=== PATIENT | female | born 1935 | race Caucasian/White ===

== ENCOUNTER 2022-08-02 15:58 | Inpatient (IN) | payer MEDICARE, OTHER ==
[~2022-08-02] VITALS: Ht 160 cm; Wt 49.0 kg
--- NOTE | 2022-08-02 16:18 | NUR ---
DR TAYLOR AT BEDSIDE
[2022-08-02] MEDS ORDERED: ACETAMINOPHEN ES 500 MG TABLET PO ONE (16:30)
[2022-08-02] MEDS ORDERED: IV NS 0.9% 500 ML BAG IV ONE (16:30)
[2022-08-02 16:48] LABS: BASOPHILS % (AUTO) 0.5 % (0.0-2.0); EOSINOPHILS % (AUTO) 0.1 % (0.0-6.0); HEMATOCRIT 37 % (33-45); HEMOGLOBIN 12.1 g/dL (11.5-14.8); LYMPHOCYTES # (AUTO) 0.6 K/uL (0.8-4.8); LYMPHOCYTES % (AUTO) 6.4 % (20.0-44.0); MEAN CORPUSCULAR HGB CONC 33 g/dl (31.0-36.0); MEAN CORPUSCULAR VOLUME 93 fL (82-100); MONOCYTES # (AUTO) 0.9 K/uL (0.1-1.30); MONOCYTES % (AUTO) 10.1 % (2.0-12.0); NEUTROPHILS # (AUTO) 7.5 K/uL (1.8-8.9); NEUTROPHILS % (AUTO) 82.9 % (43.0-81.0); PLATELET COUNT (AUTO) 304 K/uL (150-450); RED BLOOD CELL COUNT(AUTO) 3.96 MIL/uL (4.0-5.2); WHITE BLOOD COUNT (AUTO) 9.1 K/uL (4.3-11.0)
[2022-08-02 17:00] LABS: CALCIUM, SERUM 7.8 mg/dL (8.5-10.1); CREATININE 0.7 mg/dL (0.6-1.3); POTASSIUM 4.1 mmol/L (3.5-5.1)
[2022-08-02 17:05] LABS: ALBUMIN 3.7 g/dL (3.4-5.0); BILIRUBIN,DIRECT 0.1 mg/dL (0.0-0.2); BILIRUBIN,TOTAL 0.3 mg/dL (0.2-1.0); TOTAL PROTEIN, SERUM 7.3 g/dL (6.4-8.2)
--- NOTE | 2022-08-02 17:06 | NUR ---
rapid covid swab done and sent to lab
[2022-08-02] MEDS ORDERED: ACETAMINOPHEN 325 MG TABLET ONE (17:07)
[2022-08-02] MEDS ORDERED: ACETAMINOPHEN ES 500 MG TABLET ONE (17:14)
--- NOTE | 2022-08-02 18:00 | NUR ---
urine sample collected and sent to lab
--- NOTE | 2022-08-02 18:01 | NUR ---
MOVE SHEET SUBMITTED
--- NOTE | 2022-08-02 18:02 | NUR ---
GOT BED 306
--- NOTE | 2022-08-02 18:04 | NUR ---
2ND COVID SWAB DONE AND SENT TO LAB
[2022-08-02] MEDS ORDERED: ASPI-1169 PO (18:07)
[2022-08-02] MEDS ORDERED: SENN-148 PO (18:07)
[2022-08-02 18:22] LABS: BILIRUBIN,URINE NEGATIVE (NEGATIVE); COLOR,URINE YELLOW (YELLOW); LEUKOCYTE ESTERASE ,URINE NEGATIVE (NEGATIVE); NITRITE, URINE NEGATIVE (NEGATIVE); PROTEIN,URINE NEGATIVE (NEGATIVE); UGLUCOSE 1+ mg/dL (NEGATIVE); UROBILINOGEN,URINE 0.2 EU/dL (0.2)
[2022-08-02 18:39] LABS: BACTERIA,URINE None seen /HPF (None Seen); SQUAMOUS EPITHELIAL CELL,UR 0-2 /HPF (None Seen); WBC,URINE 0-2 /HPF (0-3)
--- NOTE | 2022-08-02 18:49 | NUR ---
AJIL POSITIVE RESULT RELAYED BY LEATHER STITCHER. MADE AWARE
--- NOTE | 2022-08-02 19:12 | NUR ---
AWAITING FOR NEW BED ASSIGNMENT FROM HYDRAULICS TEACHER.
--- NOTE | 2022-08-02 19:40 | NUR ---
RECEIVED PT AAOX4. ABLE TO MAKE NEEDS KNOWN. PATIENT CAME INITIALLY WITH CC OF HEADACHE. ADMITTED FOR COVID. RECEIVED WITH IV LINE ON RIGHT FA G20. POSITIONED COMFORTABLY IN BED. VITALS CHECKED
--- NOTE | 2022-08-02 19:49 | NUR ---
SEEN BY JAIMEE ALTAMIRANO AT BEDSIDE
[2022-08-02] MEDS ORDERED: MAG HYDROX/AL HYDROX/SIMETH 30 ML UDC PO PRN (20:30)
[2022-08-02] MEDS ORDERED: ACETAMINOPHEN 325 MG TABLET PO PRN (20:30)
[2022-08-02] MEDS ORDERED: ONDANSETRON HCL/PF 4 MG/2 ML VIAL IVP PRN (20:30)
[2022-08-02] MEDS ORDERED: MAGNESIUM HYDROXIDE 30 ML UDC PO PRN (20:30)
[2022-08-02] MEDS ORDERED: Z GUARD REMEDY 4 OZ OINT TP PRN (20:30)
[2022-08-02] MEDS ORDERED: TEMAZEPAM 15 MG CAPSULE PO PRN (20:30)
--- NOTE | 2022-08-02 21:08 | NUR ---
REPORT GIVEN TO EARNEST CHAU
--- NOTE | 2022-08-02 21:25 | NUR ---
TRANSFERRED PATIENT TO ROOM
--- NOTE | 2022-08-02 21:45 | NUR ---
RN NOTE RECEIVED PT IN BED FROM ER VIA [facility], CAME HERE FOR THE DX OF COVID-19 AND HYPONATREMIA. PT AWAKE, A/O X 4, ABLE TO MAKE NEEDS KNOWN. CURRENTLY ON RA TOLERATING WELL WITH O2 SAT @ 100%. VS STABLE. NO S/SX OF ACUTE RESPI DISTRESS NOTED AT THIS TIME. NO SOB. PT COMPLAINS PAIN ON HER RIGHT EAR. IV ACCESS NOTED ON RFA #20g, PATENT, INTACT AND FLUSHES WELL. NO OPEN WOUNDS UPON ASSESSMENT EXCEPT FOR LARGE BRUISING ON BILATERAL ARMS, AND MINOR BRUISING ON HER STOMACH. ALL SAFETY MEASURES IN PLACE: BED LOCKED IN LOW POSITION, BED ALARM ON, CALL LIGHT WITHIN REACH, SR UP X 2. WILL CONTINUE TO MONITOR PT.
[2022-08-02] MEDS: ATORVASTATIN 10 MG TABLET PO SCH (21:58)
[2022-08-02] MEDS: MORPHINE SULFATE INJ 2 MG/ML DISP.SYRIN IV PRN (21:58)
--- NOTE | 2022-08-02 22:05 | NUR ---
RN NOTE PT COMPLAINS OF SEVERE PAIN ON HER R EAR. NO RESPI DISTRESS NOTED. MORPHINE IV GIVEN ORDERED. WILL CONTINUE TO MONITOR PT.
[2022-08-02] MEDS: IV NS 0.9% 1,000 ML IV PRN (22:14)
[2022-08-03] MEDS: HYDROCODONE/APAP 5/325MG TABLET PO PRN (01:16)
--- NOTE | 2022-08-03 01:25 | NUR ---
RN NOTE PT STILL COMPLAINS OF PAIN ON HER R EAR PLUS A HEADACHE. ASKS FOR ANOTHER PAIN MED. NORCO PO GIVEN ORDERED. WILL CONTINUE TO MONITOR PT.
[2022-08-03 04:00] VITALS: BP 130/74
[2022-08-03] MEDS: ENOXAPARIN SODIUM 40 MG/0.4 ML DISP.SYRIN SQ SCH (06:07)
--- NOTE | 2022-08-03 06:08 | NUR ---
RN NOTE PT STATES FEELING BETTER COMPARED TO LAST NIGHT'S PAIN IN HER R EAR. ALL DUE MEDS GIVEN. NEEDS ATTENDED TO. TURNED AND REPOSITIONED. WILL ENDORSE TO AM SHIFT NURSE FOR NATALY.
[2022-08-03 06:57] LABS: BASOPHILS % (AUTO) 0.4 % (0.0-2.0); HEMATOCRIT 33 % (33-45); HEMOGLOBIN 11.1 g/dL (11.5-14.8); LYMPHOCYTES % (AUTO) 15.5 % (20.0-44.0); MEAN CORPUSCULAR HGB CONC 34 g/dl (31.0-36.0); MEAN CORPUSCULAR VOLUME 92 fL (82-100); MONOCYTES # (AUTO) 0.8 K/uL (0.1-1.30); MONOCYTES % (AUTO) 12.9 % (2.0-12.0); NEUTROPHILS # (AUTO) 4.5 K/uL (1.8-8.9); NEUTROPHILS % (AUTO) 70.2 % (43.0-81.0); PLATELET COUNT (AUTO) 273 K/uL (150-450); RED BLOOD CELL COUNT(AUTO) 3.52 MIL/uL (4.0-5.2); WHITE BLOOD COUNT (AUTO) 6.4 K/uL (4.3-11.0)
[2022-08-03 07:07] LABS: CALCIUM, SERUM 7.9 mg/dL (8.5-10.1); CREATININE 0.6 mg/dL (0.6-1.3); MAGNESIUM 2.3 mg/dL (1.8-2.4); PHOSPHORUS 3.9 mg/dL (2.5-4.9); POTASSIUM 4.1 mmol/L (3.5-5.1)
[2022-08-03 07:13] LABS: THYROID STIMULATING HORMONE 3.244 uIU/mL (0.358-3.74)
[2022-08-03] MEDS ORDERED: MULT-447 PO (07:18)
--- NOTE | 2022-08-03 07:53 | NUR ---
RN OPENING NOTES: RECEIVED PT AWAKE, IN BED, A/O X3-4, ABLE TO VERBALIZE NEEDS. ON RA, SATURATING WELL @ 99%. NO S/S OF SOB OR ACUTE DISTRESS NOTED. C/O HEADACHE AND GENERAL PAIN 03/25, WILL MEDICATE ORDERED. IV ACCESS AT R FA #20 RUNNING NS AT 75ML/HR. SAFETY MEASURES IN PLACE, CALL LIGHT, TABLE WITHIN REACH, WILL CONT WITH PLAN OF CARE DURING SHIFT.
[2022-08-03] MEDS: PANTOPRAZOLE 40 MG TABLET.DR PO SCH (08:16)
[2022-08-03] MEDS: MORPHINE SULFATE INJ 2 MG/ML DISP.SYRIN IV PRN (08:17)
[2022-08-03] MEDS ORDERED: ASPIRIN EC 81 MG TABLET.DR PO SCH (09:00)
[2022-08-03] MEDS: MULTIVIT W/MINERALS 1 TAB TABLET PO SCH (09:36)
[2022-08-03] MEDS: IV NS 0.9% 1,000 ML IV PRN (09:46)
[2022-08-03 12:00] VITALS: BP 145/74
--- NOTE | 2022-08-03 16:45 | NUR ---
PT LEFT UNIT FOR MRI VIA [facility]
--- NOTE | 2022-08-03 17:30 | NUR ---
PT CAME BACK TO UNIT FROM MRI
--- NOTE | 2022-08-03 18:53 | NUR ---
RN CLOSING NOTES: PT AWAKE, IN BED, A/O X 3, ABLE TO VERBALIZE NEEDS, SEEMS FORGETFUL AT TIMES. ON RA, SATURATING WELL @ 99%. NO S/S OF SOB OR ACUTE DISTRESS NOTED. DENIES PAIN AT THIS TIME. IV ACCESS AT R FA #20 RUNNING NS AT 75ML/HR. KEPT PT CLEAN, DRY AND COMFORTABLE. SAFETY MEASURES IN PLACE, CALL LIGHT, TABLE WITHIN REACH, WILL ENDORSE TO PM SHIFT.
--- NOTE | 2022-08-03 19:30 | NUR ---
RN OPENING NOTE RECEIVED PT IN BED, AWAKE, A/O X 3-4, ABLE TO MAKE NEEDS KNOWN. CURRENTLY ON RA TOLERATING WELL WITH O2 SAT @ 99%. NO S/SX OF ACUTE RESPI DISTRESS NOTED AT THIS TIME. NO SOB. BREATHING IS EVEN AND UNLABORED. IV ACCESS NOTED ON RFA #20g, PATENT, INTACT AND FLUSHES WELL, RUNNING NS @ 75 CC/HR. ALL SAFETY MEASURES IN PLACE: BED LOCKED IN LOW POSITION, BED ALARM ON, CALL LIGHT WITHIN REACH, SR UP X 2. WILL CONTINUE TO MONITOR PT.
[2022-08-03 20:00] VITALS: BP 103/57
[2022-08-03] MEDS: ATORVASTATIN 10 MG TABLET PO SCH (21:18)
[2022-08-04 04:00] VITALS: BP 133/70
--- NOTE | 2022-08-04 06:04 | NUR ---
RN NOTE PT REMAINED STABLE T/O THE NIGHT. DUE MEDS GIVEN. NEEDS ATTENDED TO. TURNED AND REPOSITIONED. WILL ENDORSE TO AM SHIFT NURSE FOR NATALY.
[2022-08-04] MEDS: ENOXAPARIN SODIUM 40 MG/0.4 ML DISP.SYRIN SQ SCH (06:16)
[2022-08-04 08:00] VITALS: BP 148/63
[2022-08-04] MEDS: MULTIVIT W/MINERALS 1 TAB TABLET PO SCH (10:00)
[2022-08-04] MEDS: PANTOPRAZOLE 40 MG TABLET.DR PO SCH (10:00)
[2022-08-04] MEDS: ASPIRIN 81 MG TAB.CHEW PO SCH (10:00)
[2022-08-04] MEDS: AMOX/CLAVULANATE 875 MG TABLET PO SCH ×2 (13:28→21:42)
[2022-08-04 16:00] VITALS: BP 121/70
--- NOTE | 2022-08-04 19:11 | NUR ---
RN CLOSING NOTES: PT AWAKE, IN BED, A/O X 3, ABLE TO VERBALIZE NEEDS, SEEMS FORGETFUL AT TIMES. ON RA, SATURATING WELL @ 98%. NO S/S OF SOB OR ACUTE DISTRESS NOTED. DENIES PAIN AT THIS TIME. IV ACCESS AT R FA #20 RUNNING NS AT 75ML/HR. KEPT PT CLEAN, DRY AND COMFORTABLE. SAFETY MEASURES IN PLACE, CALL LIGHT, TABLE WITHIN REACH, WILL ENDORSE TO PM SHIFT.
[2022-08-04 20:00] VITALS: BP 139/73
--- NOTE | 2022-08-04 20:00 | NUR ---
RN NOTE RECEIVED PT IN BED, AWAKE ALERT AND ORIENTED. DENIES ANY PAIN OR SOB. ON ROOM AIR, NOT IN ANY DISTRESS. RFA IV PATENT AND INTACT, NS RUNNING AT 75ML/HR. ALL SAFETY MEASURES IN PLACE. WILL CONTINUE TO MONITOR.
[2022-08-04] MEDS: ATORVASTATIN 10 MG TABLET PO SCH (21:43)
[2022-08-05 04:00] VITALS: BP 150/76
[2022-08-05] MEDS: IV NS 0.9% 1,000 ML IV PRN ×2 (04:12→19:23)
[2022-08-05] MEDS: ENOXAPARIN SODIUM 40 MG/0.4 ML DISP.SYRIN SQ SCH (06:58)
--- NOTE | 2022-08-05 07:39 | NUR ---
RN NOTE PT TOLERATES ROOM AIR. DENIES ANY PAIN OR SOB. ON ROOM AIR, NOT IN ANY DISTRESS. RFA IV PATENT AND INTACT, NS RUNNING AT 75ML/HR, NO SIGNS OF INFILTRATION. PT CONTINENT IN BLADDER. CALL LIGHT WITHIN REACH AT ALL TIMES. ENDORSED TO AM SHIFT NURSE FOR NATALY
--- NOTE | 2022-08-05 07:45 | NUR ---
RN OPENING NOTES: PT AWAKE, IN BED, A/O X 3, ABLE TO VERBALIZE NEEDS,ON RA, TOLERATING WELL, NO S/S OF SOB OR ACUTE DISTRESS NOTED. DENIES PAIN AT THIS TIME. IV ACCESS AT R FA #20 RUNNING NS AT 75ML/HR. KEPT PT CLEAN. SAFETY MEASURES IN PLACE, CALL LIGHT, TABLE WITHIN REACH. PLAN OF CARE CONTINUE.
[2022-08-05 08:00] VITALS: BP 121/76
[2022-08-05] MEDS: PANTOPRAZOLE 40 MG TABLET.DR PO SCH (08:24)
[2022-08-05] MEDS: AMOX/CLAVULANATE 875 MG TABLET PO SCH ×2 (08:24→21:03)
[2022-08-05] MEDS: ASPIRIN 81 MG TAB.CHEW PO SCH (08:26)
[2022-08-05] MEDS: MULTIVIT W/MINERALS 1 TAB TABLET PO SCH (08:26)
[2022-08-05 16:00] VITALS: BP 141/73
--- NOTE | 2022-08-05 18:24 | NUR ---
RN CLOSING NOTES PT ALERT AND AWAKE, IN BED, A/O X 3, ABLE TO VERBALIZE NEEDS,ON RA, TOLERATING WELL, NO S/S OF SOB OR ACUTE DISTRESS NOTED. DENIES PAIN AT THIS TIME. IV ACCESS AT LEFT AC G#18 PATENT AND INTACT, FLUSHES WELL, RUNNING NS AT 75ML/HR. KEPT PT CLEAN. SAFETY MEASURES IN PLACE, CALL LIGHT, TABLE WITHIN REACH. WILL ENDORSE TO NIGHT NURSE FOR NATALY.
--- NOTE | 2022-08-05 19:40 | NUR ---
MS RN OPENING NOTE RECEIVED PT IN BED, AWAKE, A/O X 3-4, ABLE TO MAKE NEEDS KNOWN. CURRENTLY ON RA TOLERATING WELL WITH O2 SAT @ 99%. NO S/SX OF ACUTE RESPI DISTRESS NOTED AT THIS TIME. NO SOB. BREATHING IS EVEN AND UNLABORED. IV ACCESS NOTED ON LAC #18g, PATENT, INTACT AND FLUSHES WELL RUNNING NS @ 75 CC/HR. SAFETY MEASURES IN PLACED, BED IN LOWEST AND LOCKED POSITION, BED ALARM ON, CALL LIGHT WITHIN REACH, WILL CONTINUE TO MONITOR THROUGHOUT THE SHIFT.
[2022-08-05 20:00] VITALS: BP 145/69
[2022-08-05] MEDS: ATORVASTATIN 10 MG TABLET PO SCH (21:03)
[2022-08-06 04:00] VITALS: BP 154/77
[2022-08-06] MEDS: IV NS 0.9% 1,000 ML IV PRN ×2 (06:05→20:10)
[2022-08-06] MEDS: ENOXAPARIN SODIUM 40 MG/0.4 ML DISP.SYRIN SQ SCH (06:06)
--- NOTE | 2022-08-06 06:30 | NUR ---
MS RN CLOSING NOTE PT REMAINS IN BED, A/O X 3-4, ABLE TO MAKE NEEDS KNOWN. CURRENTLY ON RA TOLERATING WELL WITH O2 SAT @ 99%. NO S/SX OF ACUTE RESPI DISTRESS NOTED AT THIS TIME. NO SOB. BREATHING IS EVEN AND UNLABORED. IV ACCESS NOTED ON LAC #18g, PATENT, INTACT AND FLUSHES WELL RUNNING NS @ 75 CC/HR. ALL DUE MEDS GIVEN, KEPT DRY AND CLEAN AT ALL TIMES, SAFETY MEASURES IN PLACED, BED IN LOWEST AND LOCKED POSITION, BED ALARM ON, CALL LIGHT WITHIN REACH, WILL ENDORSE TO AM SHIFT NURSE FOR CONTINUITY OF CARE.
[2022-08-06 08:00] VITALS: BP 161/62
[2022-08-06] MEDS: ASPIRIN 81 MG TAB.CHEW PO SCH (08:14)
[2022-08-06] MEDS: MULTIVIT W/MINERALS 1 TAB TABLET PO SCH (08:14)
[2022-08-06] MEDS: AMOX/CLAVULANATE 875 MG TABLET PO SCH ×2 (08:14→20:12)
[2022-08-06] MEDS: PANTOPRAZOLE 40 MG TABLET.DR PO SCH (08:14)
--- NOTE | 2022-08-06 09:51 | NUR ---
RN OPENING NOTE RECEIVED PT IN BED, AWAKE, A/O X 3-4, ABLE TO MAKE NEEDS KNOWN. CURRENTLY ON RA TOLERATING WELL WITH O2 SAT @ 99%. NO S/SX OF ACUTE RESPI DISTRESS NOTED AT THIS TIME. NO SOB. BREATHING IS EVEN AND UNLABORED. IV ACCESS LAC #18g, INTACT AND FLUSHES WELL RUNNING NS @ 75 CC/HR. SAFETY MEASURES IN PLACED, BED IN LOWEST AND LOCKED POSITION, BED ALARM ON, CALL LIGHT WITHIN REACH, WILL CONTINUE TO MONITOR THROUGHOUT THE SHIFT.
[2022-08-06] MEDS ORDERED: IV NS 0.9% 250 ML IV ONE (14:47)
[2022-08-06] MEDS ORDERED: IOHEXOL-350 100 ML VIAL IV ONE (14:47)
[2022-08-06] MEDS ORDERED: CT SWABBABLE VALVE TRANS SET 1 EA INFUS.SET MC ONE (14:47)
[2022-08-06 16:00] VITALS: BP 139/47
--- NOTE | 2022-08-06 19:00 | NUR ---
RN CLOSING NOTE PT ALERT AND AWAKE, IN BED, A/O X 3, ABLE TO VERBALIZE NEEDS,ON RA, TOLERATING WELL, NO S/S OF SOB OR ACUTE DISTRESS NOTED. DENIES PAIN AT THIS TIME. IV ACCESS AT LEFT AC G#18 PATENT AND INTACT, FLUSHES WELL, RUNNING NS AT 75ML/HR. KEPT PT CLEAN. SAFETY MEASURES IN PLACE, CALL LIGHT, TABLE WITHIN REACH. WILL ENDORSE TO NIGHTSHIFT NURSE
--- NOTE | 2022-08-06 19:10 | NUR ---
RN NOTES RECEIVED REPORT FROM MORNING RN. PATIENT IN BED A/O X2-3. ON ROOM AIR SATING 97% NO SOB NO DISTRESS NOTED AT THIS TIME. WITH IV ACCESS AT L HAND # 22 PATENT FLUSHES WELL ON CONTINUOS IV FLUIDS NS@ 75CC/HR TOLERATING WELL. ALL SAFETY MEASURES IN PLACE AT ALL TIMES HOB ELEVATED. CALL L8IGHT WITHIN REACH. ISOLATION PREACUTION IN PLACE AT ALL TIMES WILL CLOSELY MONITOR THE PATIENT
[2022-08-06 20:00] VITALS: BP 141/52
[2022-08-06] MEDS: ATORVASTATIN 10 MG TABLET PO SCH (22:03)
[2022-08-07 04:00] VITALS: BP 155/71
[2022-08-07 06:44] LABS: BASOPHILS # (AUTO) 0.1 K/uL (0.0-0.2); BASOPHILS % (AUTO) 1.1 % (0.0-2.0); EOSINOPHILS % (AUTO) 3.3 % (0.0-6.0); HEMATOCRIT 35 % (33-45); HEMOGLOBIN 11.6 g/dL (11.5-14.8); LYMPHOCYTES # (AUTO) 1.1 K/uL (0.8-4.8); LYMPHOCYTES % (AUTO) 18.6 % (20.0-44.0); MEAN CORPUSCULAR HGB CONC 33 g/dl (31.0-36.0); MEAN CORPUSCULAR VOLUME 92 fL (82-100); MONOCYTES # (AUTO) 0.5 K/uL (0.1-1.30); MONOCYTES % (AUTO) 8.8 % (2.0-12.0); NEUTROPHILS # (AUTO) 4.1 K/uL (1.8-8.9); NEUTROPHILS % (AUTO) 68.2 % (43.0-81.0); PLATELET COUNT (AUTO) 281 K/uL (150-450); RED BLOOD CELL COUNT(AUTO) 3.81 MIL/uL (4.0-5.2); WHITE BLOOD COUNT (AUTO) 6.1 K/uL (4.3-11.0)
--- NOTE | 2022-08-07 06:50 | NUR ---
RN NOTES PATIENT REMAINS STABLE NO SIGNIFICANT CHANGES. ALL DUE MEDS GIVEN ORDERED. IV ACCESS PATENT FLUSHES WELL CONNECTED TO CONTINUOS IV NS@75CC/HR. ALL SAFETY MEASURES IN PLACE AT ALL TIMES. WILL ENDORSED TO MORNING SHIFT FOR NATALY
[2022-08-07 07:24] LABS: CALCIUM, SERUM 8.2 mg/dL (8.5-10.1); CARBON DIOXIDE 23 mmol/L (21-32); CHLORIDE 103 mmol/L (98-107); CREATININE 0.5 mg/dL (0.6-1.3); GLUCOSE 95 mg/dL (74-106); MAGNESIUM 2.4 mg/dL (1.8-2.4); PHOSPHORUS 4.4 mg/dL (2.5-4.9); POTASSIUM 3.8 mmol/L (3.5-5.1); SODIUM SERUM 136 mmol/L (136-145); UREA NITROGEN, BLOOD 5 mg/dL (7-18)
[2022-08-07 08:00] VITALS: BP 171/68
[2022-08-07] MEDS: PANTOPRAZOLE 40 MG TABLET.DR PO SCH (08:27)
[2022-08-07] MEDS: HYDROCODONE/APAP 5/325MG TABLET PO PRN (08:27)
[2022-08-07] MEDS: ENOXAPARIN SODIUM 40 MG/0.4 ML DISP.SYRIN SQ SCH (08:27)
[2022-08-07] MEDS: ASPIRIN 81 MG TAB.CHEW PO SCH (08:27)
[2022-08-07] MEDS: AMOX/CLAVULANATE 875 MG TABLET PO SCH (08:27)
[2022-08-07] MEDS: MULTIVIT W/MINERALS 1 TAB TABLET PO SCH (08:28)
[2022-08-07] MEDS ORDERED: ATOR10TA PO (13:42)
[2022-08-07] MEDS ORDERED: ACET325T53 PO (13:42)
[2022-08-07] MEDS ORDERED: AMOX1TAB16 PO (13:42)
[2022-08-07] MEDS ORDERED: PANT40TA49 PO (13:42)
--- NOTE | 2022-08-07 15:54 | NUR ---
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
--- NOTE | 2022-08-07 17:00 | NUR ---
RN NOTE PATIENT DISCHARGED TO [facility] VIA [facility] VIA [employer]. PATIENT BELONGINGS ACCOUNTED FOR. DISCHARGE PACKET GIVEN TO AMBULANCE CREW. ID BAND AND IV ACCESS REMOVED. CATHETER TIP INTACT NO S/S OF BLEEDING. CHARGE NURSE AWARE.
== END 2022-08-07 16:28 | DRG 177 ==
LOC: ER 16:02 → TELE 18:04 → TELE1 20:55 → MEDSG1 22:00
PROVIDERS: ADMIT Nurse Practitioner Acute Care; ATTEND Nurse Practitioner Acute Care
DX: U07.1 COVID-19 (principal); G93.41 Metabolic encephalopathy; E87.1 Hypo-osmolality and hyponatremia; E86.1 Hypovolemia; Z28.310 Unvaccinated for COVID-19; Z28.20 Immunization not carried out because of patient decision for unspecified reason; Z86.73 Personal history of transient ischemic attack (TIA), and cerebral infarction without residual deficits; M21.612 Bunion of left foot; M21.611 Bunion of right foot; I10 Essential (primary) hypertension; J32.9 Chronic sinusitis, unspecified; Z79.82 Long term (current) use of aspirin; F01.50 Vascular dementia, unspecified severity, without behavioral disturbance, psychotic disturbance, mood disturbance, and anxiety
CPT/HCPCS: 36415; 70450-TC; 70496-TC; 70551-TC; 71045-TC; 72125-TC; 80048-TC; 80061-TC; 80076-TC; 81001; 83735-TC; 84100-TC; 84443-TC; 85025-TC; 85378-TC; 85652-TC; 86140-TC; 87081-TC; 97110-TC; 97112-TC; 97116-TC; 97530-TC; 97535-TC; G0378; J1650; J2270; J7030; J7040; J7050; Q9967